=== PATIENT | male | born 1980 | race Caucasian/White ===

== ENCOUNTER 2023-05-17 12:51 | Emergency (ER) | payer MEDICAID ==
[2023-05-17] MEDS ORDERED: Diphtheria,Pertussis(Acell),Tetanus Vaccine 0.5 ML Syringe IM ONE (13:31)
== END 2023-05-17 14:10 | disposition home or self-care (01) ==
LOC: JD.ED 12:51
DX: T33.532A Superficial frostbite of left finger(s), initial encounter (principal); F17.210 Nicotine dependence, cigarettes, uncomplicated; X31.XXXA Exposure to excessive natural cold, initial encounter
CPT/HCPCS: 90471; 90715; 99282; 99283-25